=== PATIENT | female | born 1995 | race Caucasian/White ===

== ENCOUNTER 2022-05-21 14:31 | Inpatient (IN) ==
[2022-05-21] MEDS ORDERED: MEPERIDINE 50 MG/1 ML VIAL IV PRN (14:55)
[2022-05-21] MEDS ORDERED: miSOPROStoL 200 MCG TABLET RECTAL PRN (14:55)
[2022-05-21] MEDS ORDERED: BUTORPHANOL 2 MG/ML VIAL IV PRN (14:55)
[2022-05-21] MEDS ORDERED: CARBOPROST TROMETHAMINE 250 MCG/ML AMP IM PRN (14:55)
[2022-05-21] MEDS ORDERED: TRANEXAMIC ACID 1,000 MG in SODIUM CHLORIDE 0.9% 100 ML IV PRN (14:55)
[2022-05-21] MEDS ORDERED: OXYTOCIN/LR 20 UNIT/1,000 ML BAG IV ONE (14:55)
[2022-05-21] MEDS ORDERED: METHYLERGONOVINE 0.2 MG/1 ML AMP IM PRN (14:55)
[2022-05-21 15:30] LABS: Basophils % 0.3 % (0.0-0.8); Eosinophils # 0.2 10*3/uL (0.0-0.87); Eosinophils % 1.8 % (0.00-10.9); Hematocrit 32.8 VOL% (35.7-47.0); Immature Granulocytes % 0.7 %; Immature Granulocytes Absolute 0.06 #; Lymphocytes # 1.9 10*3/uL (1.4-4.0); Lymphocytes % 21.1 % (21.3-54.2); Mean Corpuscular HGB Conc 33.5 GM/DL (32-36); Mean Platelet Volume 10.9 FL (9.6-12.0); Monocytes # 0.5 10*3/uL (0.11-0.8); Monocytes % 5.2 % (1.7-12.7); Neutrophils % 70.9 % (38.7-73.9); Platelet Count 307 T/CUMM (130-400); Red Blood Count 3.77 MC/CUMM (3.8-5.5); Red Cell Distribution Width 14.4 % (9.3-17.3); White Blood Count 8.8 T/CUMM (4-12)
[2022-05-21 15:52] LABS: INR 0.9; PT Patient Result 9.8 SECS (10.1-12.1); Partial Thromboplastin Time 24.5 SECS (23.7-32.9)
[2022-05-21 15:55] LABS: Alanine Aminotransferase 18 U/L (13-56); Albumin 2.4 G/DL (3.4-5.0); Alkaline Phosphatase 114 U/L (45-117); Aspartate Amino Transferase 20 U/L (0-37); Bilirubin,Direct < 0.050 MG/DL (0.0-0.20); Bilirubin,Total < 0.39 MG/DL (0.20-1.00); Blood Urea Nitrogen 9 MG/DL (7-18); Calcium 9.8 MG/DL (8.5-10.1); Carbon Dioxide 21 MMOL/L (21-32); Chloride 108 MMOL/L (98-107); Glucose 84 MG/DL (74-106); Potassium 4.2 MMOL/L (3.5-5.1); Sodium 136 MMOL/L (136-145); Total Protein 6.5 G/DL (6.4-8.2); Uric Acid 6.4 MG/DL (2.6-6.0)
[2022-05-21] MEDS: LACTATED RINGERS 1,000 ML IV SCH ×2 (15:55→21:16)
[2022-05-21] MEDS ORDERED: hydrALAZINE 20 MG/1 ML VIAL IV ONE ×2 (16:24→18:13)
[2022-05-21] MEDS: ONDANSETRON 4 MG/2 ML VIAL IV PRN (17:54)
[2022-05-21] MEDS ORDERED: PROMETHAZINE 25 MG/1 ML VIAL IM ONE (20:56)
[2022-05-21] MEDS ORDERED: LACTATED RINGERS 250 ML IV PRN (20:56)
[2022-05-21] MEDS ORDERED: hydrOXYzine HCL 25 MG/1 ML VIAL IM PRN (20:56)
[2022-05-21] MEDS ORDERED: ONDANSETRON 4 MG/2 ML VIAL IV ONE (20:56)
[2022-05-21] MEDS ORDERED: NALOXONE 0.4 MG/ML VIAL IV PRN (20:56)
[2022-05-21] MEDS ORDERED: ePHEDrine 50 MG/ML VIAL IV PRN (20:56)
[2022-05-21] MEDS ORDERED: diphenhydrAMINE 50 MG/1 ML VIAL IV PRN ×2 (20:56)
[2022-05-21] MEDS ORDERED: LACTATED RINGERS 1,000 ML IV SCH (21:00)
[2022-05-21] MEDS ORDERED: CITRIC ACID/SODIUM CITRATE 30 ML UDCUP PO ONE (21:04)
[2022-05-21] MEDS ORDERED: FAMOTIDINE 20 MG/2 ML VIAL IV ONE (21:04)
[2022-05-21] MEDS: fentaNYL 2 MCG/ROPIV 0.2% EPID 100 ML EPIDURAL SCH (21:26)
[2022-05-21] MEDS: LABETALOL 200 MG TABLET PO SCH (22:05)
[2022-05-21 22:49] LABS: Bacteria,Urine Occasional /HPF (Few); Bilirubin,Urine Small mg/dL (Negative); Blood, Urine Negative (Negative); Glucose,Urine (UA) 100 mg/dL (Negative); Ketones,Urine Trace mg/dL (Negative); Mucus,Urine Many /LPF (Occasional); Nitrite,Urine Negative (Negative); Protein,Urine 100 mg/dL (Negative); RBC,Urine 2 /HPF (0-4); Squamous Epithelial Cell,Urine Occasional /HPF (0-10); Urine Appearance Clear (Clear); Urine Color Yellow (Yellow); Urine Specific Gravity >= 1.030 (1.001-1.035); Urine Urobilinogen 0.2 eU/dL (<2.0); Urine pH 5.5 (4.5-8.0)
[2022-05-22] MEDS: fentaNYL 2 MCG/ROPIV 0.2% EPID 100 ML EPIDURAL SCH ×2 (04:02→08:46)
[2022-05-22] MEDS ORDERED: OXYTOCIN/LR 20 UNIT/1,000 ML BAG IV SCH (04:30)
[2022-05-22] MEDS: LACTATED RINGERS 1,000 ML IV SCH ×2 (05:23→13:08)
[2022-05-22] MEDS ORDERED: LIDOCAINE MPF 2% /EPI 20 ML VIAL ONE ×2 (09:27→18:03)
[2022-05-22] MEDS ORDERED: fentaNYL 100 MCG/2 ML VIAL ONE ×3 (09:28→18:43)
[2022-05-22] MEDS: ONDANSETRON 4 MG/2 ML VIAL IV PRN (10:12)
[2022-05-22] MEDS: LABETALOL 200 MG TABLET PO SCH ×2 (10:20→20:18)
[2022-05-22] MEDS ORDERED: hydrALAZINE 20 MG/1 ML VIAL IV ONE ×3 (12:54→14:00)
[2022-05-22] MEDS ORDERED: LABETALOL 100 MG TABLET PO ONE (12:54)
[2022-05-22] MEDS ORDERED: TRANEXAMIC ACID 1,000 MG/10 ML VIAL ONE ×2 (14:23→17:10)
[2022-05-22] MEDS ORDERED: miSOPROStoL 200 MCG TABLET ONE ×2 (14:23→17:10)
[2022-05-22] MEDS ORDERED: CARBOPROST TROMETHAMINE 250 MCG/ML AMP IM ONE ×2 (14:23→17:11)
[2022-05-22] MEDS ORDERED: SODIUM CHLORIDE 0.9% 0 ML IV ONE ×2 (14:23→17:11)
[2022-05-22] MEDS ORDERED: METHYLERGONOVINE 0.2 MG/1 ML AMP ONE (14:23)
[2022-05-22] MEDS ORDERED: fentaNYL 100 MCG/2 ML VIAL IV ONE (15:07)
[2022-05-22] MEDS ORDERED: CITRIC ACID/SODIUM CITRATE 30 ML UDCUP PO ONE (17:08)
[2022-05-22] MEDS ORDERED: FAMOTIDINE 20 MG/2 ML VIAL IV ONE ×2 (17:08→17:13)
[2022-05-22] MEDS ORDERED: CLINDAMYCIN INJ 900 MG/50 ML PREMIX IV ONE (17:08)
[2022-05-22] MEDS ORDERED: OXYTOCIN/LR 20 UNIT/1,000 ML BAG IV ONE ×2 (17:11→22:37)
[2022-05-22] MEDS ORDERED: CITRIC ACID/SODIUM CITRATE 30 ML UDCUP ONE (17:12)
[2022-05-22] MEDS ORDERED: buprenorphine HCL 0.3 MG/ML VIAL ONE (17:57)
[2022-05-22] MEDS ORDERED: ONDANSETRON 4 MG/2 ML VIAL ONE (18:04)
[2022-05-22] MEDS ORDERED: LACTATED RINGERS 1,000 ML IV ONE (18:06)
[2022-05-22 18:08] LABS: Cord Arterial Blood HCO3 20.9 MMOL/L
[2022-05-22] MEDS ORDERED: ACETAMINOPHEN INJ 1,000 MG/100 ML VIAL IV ONE (18:08)
[2022-05-22 18:12] LABS: Cord Venous Blood HCO3 21.4 MMOL/L; Cord Venous Blood PCO2 50.3 MMHG; Cord Venous Blood PO2 20.4
[2022-05-22] MEDS ORDERED: PHENYLEPHRINE 10 MG/1 ML VIAL IV ONE (18:19)
[2022-05-22] MEDS ORDERED: PHENYLEPHRINE 1 MG/10 ML SYRINGE IV ONE (18:22)
[2022-05-22] MEDS ORDERED: HYDROmorphone 1 MG/1 ML SYRINGE IV ONE (19:21)
[2022-05-22] MEDS ORDERED: BISACODYL 10 MG SUPP RECTAL PRN (22:37)
[2022-05-22] MEDS ORDERED: oxyCODONE/ACETAMINOPHEN 5-325 MG TABLET PO PRN (22:37)
[2022-05-22] MEDS ORDERED: WITCH HAZEL PADS 100/JAR TOP PRN (22:37)
[2022-05-22] MEDS ORDERED: HYDROCORTISONE 2.5% RECTAL CREAM 30 GM TUBE TOP PRN (22:37)
[2022-05-22] MEDS ORDERED: BENZOCAINE 20%/MENTHOL 0.5% SPRAY 56 GM CAN TOP PRN (22:37)
[2022-05-22] MEDS ORDERED: LANOLIN 50% CREAM 0.3 OZ TUBE TOP PRN (22:37)
[2022-05-22] MEDS ORDERED: ACETAMINOPHEN 325 MG TABLET PO PRN (22:37)
[2022-05-22] MEDS ORDERED: ONDANSETRON 4 MG/2 ML VIAL IV PRN (22:37)
[2022-05-22] MEDS ORDERED: DIPH/TET/ACEL PERT BOOSTER VACCINE 0.5 ML VIAL IM ONE (23:30)
[2022-05-22] MEDS ORDERED: MEASLES/MUMPS/RUBELLA VACCINE 0.5 ML VIAL SUBCUT ONE (23:30)
[2022-05-22] MEDS ORDERED: RHO(D) IMMUNE GLOBULIN 300 MCG SYRINGE IM ONE (23:30)
[2022-05-22] MEDS: oxyCODONE/ACETAMINOPHEN 5-325 MG TABLET PO PRN (23:40)
[2022-05-23] MEDS: IBUPROFEN 800 MG TABLET PO PRN ×3 (01:02→22:14)
[2022-05-23] MEDS: ACETAMINOPHEN 500 MG TABLET PO SCH ×3 (02:00→13:25)
[2022-05-23] MEDS: CLINDAMYCIN INJ 900 MG/50 ML PREMIX IV SCH ×2 (02:28→10:05)
[2022-05-23 06:03] LABS: Basophils % 0.3 % (0.0-0.8); Eosinophils # 0.1 10*3/uL (0.0-0.87); Eosinophils % 0.4 % (0.00-10.9); Hematocrit 28.1 VOL% (35.7-47.0); Hemoglobin 9.1 GM/DL (12.0-16.0); Immature Granulocytes % 0.7 %; Lymphocytes # 2.3 10*3/uL (1.4-4.0); Mean Corpuscular HGB Conc 32.4 GM/DL (32-36); Mean Corpuscular Volume 90.4 FL (87-102); Mean Platelet Volume 11.4 FL (9.6-12.0); Monocytes # 0.8 10*3/uL (0.11-0.8); Monocytes % 5.5 % (1.7-12.7); Neutrophils % 77.1 % (38.7-73.9); Platelet Count 243 T/CUMM (130-400); Red Blood Count 3.11 MC/CUMM (3.8-5.5); Red Cell Distribution Width 14.8 % (9.3-17.3); White Blood Count 14.2 T/CUMM (4-12)
[2022-05-23] MEDS: oxyCODONE/ACETAMINOPHEN 5-325 MG TABLET PO PRN ×3 (06:23→20:36)
[2022-05-23] MEDS: SIMETHICONE CHEW 80 MG TABLET PO PRN ×3 (06:42→20:41)
[2022-05-23] MEDS: FUROSEMIDE 20 MG TABLET PO SCH ×2 (09:55→15:45)
[2022-05-23] MEDS: DOCUSATE SODIUM 100 MG CAPSULE PO SCH ×2 (09:55→20:37)
[2022-05-23] MEDS: LABETALOL 200 MG TABLET PO SCH ×2 (09:55→22:12)
[2022-05-23] MEDS ORDERED: FUROSEMIDE 20 MG TABLET PO SCH (16:00)
[2022-05-23] MEDS: MAGNESIUM HYDROXIDE SUSP 30 ML UDCUP PO PRN (20:38)
[2022-05-24] MEDS: oxyCODONE/ACETAMINOPHEN 5-325 MG TABLET PO PRN ×2 (03:45→09:38)
[2022-05-24] MEDS: IBUPROFEN 800 MG TABLET PO PRN (06:39)
[2022-05-24] MEDS: SIMETHICONE CHEW 80 MG TABLET PO PRN ×2 (06:40→08:31)
[2022-05-24] MEDS: DOCUSATE SODIUM 100 MG CAPSULE PO SCH (08:30)
[2022-05-24] MEDS: MAGNESIUM HYDROXIDE SUSP 30 ML UDCUP PO PRN (08:31)
[2022-05-24] MEDS: LABETALOL 200 MG TABLET PO SCH (08:31)
[2022-05-24 08:37] VITALS: BP 151/79
== END 2022-05-24 14:35 | disposition home or self-care (01) | DRG 788 ==
LOC: N.LDOUT 14:31 → N.LD 14:34 → N.OB 05-22 21:20
PROVIDERS: ADMIT Specialist; ATTEND Specialist
PROC: LDCSECT (ICD-10-PCS; 2022-05-22 17:30)